=== PATIENT | female | born 1980 | race African-American/Black ===

== ENCOUNTER 2018-08-17 07:08 | Emergency (ER) | payer OTHER ==
[~2018-08-17] VITALS: Ht 165.1 cm; Wt 101.2 kg
--- NOTE | ~2018-08-17 | EKG ---
[place] [address] [facility] [employer] [place] [address] ELECTROCARDIOGRAM REPORT Name: CHRISTIAN MCKINNEY Room #: ENZO Del Rosario#: [id number] Admission: 08/17/18 Attend Phys: Discharge: Date of : 82 Report #: [id number] THIS REPORT FOR: //name// [facility] ED Test Date: 2018-08-17 Test Time: 07:24:09 Pat Name: CHRISTIAN MCKINNEY Department: Room: Gender: F [employer] Operator: RONY : 1980 Requested By: Roc William Order Number: [id number] MD: Herb Diana Measurements Intervals [place] Rate: 69 P: 25 DE: 155 QRS: 69 QRSD: 98 T: 13 QT: 378 QTc: 405 Interpretive Statements Sinus rhythm Poor R wave progression No previous ECG available for comparison Electronically Signed On 08-17-2018 9:23:43 [employer] by Herb Diana [email or web address] <ELECTRONICALLY SIGNED> By: Herb Diana MD, [facility] 08/17/18 0923 0724 0724 Herb Diana MD, FACC /EPI
[2018-08-17] MEDS ORDERED: NOHOMEMEDICATIONS (07:29)
[2018-08-17 07:57] LABS: BASOPHILS 0.6 % (0.0-2.0); EOSINOPHILS 2.6 % (0.0-3.0); HEMATOCRIT 33.4 % (37.0-47.0); HEMOGLOBIN 11.5 gm/dL (12.0-15.0); LYMPHOCYTES 27.1 % (24.0-44.0); MCH 28.8 pg (26.0-34.0); MCHC 34.4 g/dL (28.0-37.0); MCV 83.8 fL (80.0-100.0); MONOCYTES 6.2 % (1.0-8.0); PLATELET COUNT 242 thou/uL (150-400); POLYS 63.5 % (36.0-66.0); RBC 3.99 mil/uL (4.20-5.00); RDW 14.4 % (10.5-14.5); WBC 7.8 thou/uL (4.0-11.0)
[2018-08-17 08:08] LABS: ANION GAP 5 mmol/L (7-16); BUN 9 mg/dL (7-18); CALCIUM 8.6 mg/dL (8.5-10.1); CHLORIDE 104 mmol/L (98-107); CO2 31 mmol/L (21-32); CREATININE 0.8 mg/dL (0.6-1.0); GLUCOSE 100 mg/dL (74-106); POTASSIUM 4.1 mmol/L (3.5-5.1); SODIUM 140 mmol/L (136-145)
[2018-08-17 08:17] LABS: ALBUMIN 3.5 g/dL (3.4-5.0); MAGNESIUM 1.6 mg/dL (1.8-2.4); SGOT 14 U/L (15-37); SGPT 15 U/L (30-65); TOTAL BILIRUBIN 0.2 mg/dL (<0.1-1.0); TOTAL PROTEIN 7.3 g/dL (6.4-8.2); TROPONIN-I <0.06 ng/mL (<0.06)
[2018-08-17] MEDS ORDERED: NAPROSYN500 MG PO (09:47)
[2018-08-17 10:43] VITALS: BP 125/80
== END 2018-08-17 10:44 | disposition home or self-care (01) ==
LOC: ER 07:08
PROVIDERS: Emergency Medicine
DX: R07.89 Other chest pain (principal)